=== PATIENT | female | born 1980 | race Caucasian/White ===

== ENCOUNTER 2017-05-26 | Inpatient (IN) | payer OTHER ==
[~2017-05-26] VITALS: Ht 160 cm; Wt 59.0 kg
[~2017-05-26] MED LIST: MULTIVITAMIN W-1 TAB PO; PRENATAL VITAMI1 TA3; PROZAC PO
--- NOTE | ~2017-05-26 | PN ---
Unit #: [id number] #: [id number] Patient: ARYAN ESCOBAR [id number] [facility] [address] [place] [address] [id number] I MR#: [id number] NAME: ARYAN ESCOBAR. ROOM: 84 Age: 37 Sex: F Admission Date: 05/26/2017 : 1980 Attending Physician: Gaurav Chase M.D. Admitting Physician: Gaurav Chase M.D. Primary Care Physician: Generic Doctor Not In System [facility] PROGRESS NOTES DATE 05/28/2017 DISCUSSION Ms. Evans is a 37-year-old female seen on 05/28/2017. Patient interviewed. Chart reviewed. Obtained information from nursing staff. Patient reported that she is feeling better. She has multiple raised lesions on her both arms and on legs she reported from anxiety, possible bug bites. Patient compliant, cooperative, sleeping good, tolerating medication fairly well. Complete review of system unremarkable. MENTAL STATUS EXAMINATION General appearance, patient dressed casually. Attention span, concentration fair. Oriented in place and person. Mood and affect labile. Speech monotone. Thought process concrete. Patient denied any thoughts of harming self or others. Recent and remote memory poor. Insight and judgement poor. DIAGNOSES 1. Mood disorder NOS. 2. Alcohol use disorder, severe. 3. Amphetamine use disorder, severe. ASSESSMENT/PLAN Advised to continue with current medication and therapeutic protocol. Also, ordered medical consultation to evaluate patient's skin lesion and evaluation and treatment. Will continue to follow. Dictated by... Malathi Crain/colby TD: 05/28/2017 22:44 JOB #: [id number] Unit #: [id number] #: [id number] Patient: ARYAN ESCOBAR [facility] PROGRESS NOTES Page 1 of 1 X Gaurav Chase MD X PROGRESS NOTE
--- NOTE | ~2017-05-26 | HP ---
Unit #: [id number] #: [id number] Patient: ARYAN ESCOBAR [id number] [place] [address] [id number] I MR#: [id number] NAME: ARYAN ESCOBAR. ROOM: P184 Age: 37 Sex: F Admission Date: 05/26/2017 : 1980 Attending Physician: Gaurav Chase M.D. Admitting Physician: Gaurav Chase M.D. Primary Care Physician: Generic Doctor Not In System HISTORY AND PHYSICAL HISTORY OF PRESENT ILLNESS Aryan is a 37 year old admitted to [facility] because of her abuse of alcohol. She is detoxing. PAST MEDICAL HISTORY 1. Long history of alcohol abuse. 2. History of illicit substance abuse to include crack cocaine. 3. Hepatitis C. PAST SURGICAL HISTORY Nothing reported. ALLERGIES No known drug allergies. SOCIAL HISTORY Smokes greater than 1 pack per day. Drinks a fifth of liquor on a daily basis. Admits to using crack cocaine on occasion. FAMILY HISTORY Medically noncontributory. REVIEW OF SYSTEMS CONSTITUTIONAL: No fever or chills. HEENT: Denies any sore throat, ear pain or runny nose. CARDIOVASCULAR: Denies chest pain, irregular heart rhythm or palpitations. CHEST: Denies shortness of breath or cough. No hemoptysis. GASTROINTESTINAL: Denies nausea, vomiting, diarrhea or chronic constipation. ENDOCRINE: Denies history of increased thirst or urination. No recent significant weight loss or gain. GENITOURINARY: Denies dysuria, frequency, or hematuria. SKIN: Denies any rashes. HEMATOLOGIC: Denies history of increased bleeding or bruising. MUSCULOSKELETAL: Denies any hot, swollen joints. No generalized muscle pain. NEUROLOGIC: Denies problems with vision or speech. No frequent, severe headaches. No numbness, tingling or weakness in any extremities. Denies loss of bladder or bowel control. CURRENT MEDICATIONS 1. Detox protocol. 2. Trazodone 75 mg q.h.s. Unit #: [id number] #: [id number] Patient: ARYAN ESCOBAR PHYSICAL EXAMINATION GENERAL: Alert, well-nourished, in no apparent distress. VITAL SIGNS: Blood pressure 112/84, heart rate 90, respirations 16, temperature 98.6. WEIGHT: 130. HEIGHT: 5 feet 3 inches. SKIN: Warm and dry. She has red, dry rash along both arms, right greater than left. There is evidence of excoriation. HEENT: Normocephalic. TMs not viewed. Oral and nasal passages clear. Conjunctivae clear. PERRLA. EOMs intact. NECK: Supple without lymphadenopathy or thyromegaly. HEART: Regular rate and rhythm without murmur. LUNGS: Clear. ABDOMEN: Soft, nontender. : Not done. EXTREMITIES: No evidence of cyanosis, clubbing or edema. Moves all without focal deficit. NEUROLOGICAL: Grossly within normal limits. Cranial Nerves: II: Visual cooper are intact. III, IV AND : Extraocular movements are intact. Pupils are equal, round and reactive to light. V: Facial sensation is grossly normal. VII: Facial movements and expression are normal. VIII: Auditory acuity grossly intact. IX, X: Uvula is midline. Phonation is normal. XI: Patient shrugs shoulders and turns head normally. XII: Tongue protrudes in the midline. Sensory and Motor Function: Sensory and motor sensation is grossly normal. Motor: moves all extremities well. Coordination: Gait is normal. Deep Tendon Reflexes: Intact. IMPRESSION 1. Psychiatric admission. 2. Alcohol abuse. 3. Hepatitis C. 4. Rash, most likely contact dermatitis. She tells me that she worked in the yard 4 or 5 days ago and itchy rash developed. RECOMMENDATIONS PSYCHIATRIC: Per psychiatrist. MEDICAL: 1. See no contraindication to participate in facility's activities. 2. Detox per protocol. MEDICAL PROGNOSIS Good. MEDICAL CONDITION Stable. Dictated by... Rena Bansal P.A.-C. for Malathi Ruvalcaba/colby Unit #: [id number] #: [id number] Patient: ARYAN ESCOBAR TD: 05/26/2017 19:50 JOB #: [id number] HISTORY AND PHYSICAL Page 1 of 1 X Rena Bansal HISTORY AND PHYSICAL
--- NOTE | ~2017-05-26 | PA ---
Unit #: [id number] #: [id number] Patient: ARYAN ESCOBAR [id number] [place] [address] [id number] I MR#: [id number] NAME: ARYAN ESCOBAR. ROOM: P184 Age: 37 Sex: F Admission Date: 05/26/2017 : 1980 Date of Assessment: Attending Physician: Gaurav Chase M.D. Admitting Physician: Gaurav Chase M.D. Primary Care Physician: Generic Doctor Not In System PSYCHIATRIC ASSESSMENT DATE OF SERVICE 05/25/2017. CHIEF COMPLAINT Alcohol abuse, amphetamine abuse, and depression. HISTORY OF PRESENT ILLNESS Ms. Evans is a 37-year-old female, seen on 05/25/2017. The patient presented with the above-mentioned complaint. The patient has a history of previous IOP treatment. The patient's children are under the care of her grandfather while the patient is in treatment. The patient reported feeling sad, depressed, anxious, but denied any suicidal or homicidal ideation. History of alcohol abuse and amphetamine abuse. The patient reported tobacco use, age of onset 16; alcohol, age of onset 16; marijuana, age of onset 16; crack cocaine, age of onset 27; amphetamine, age of onset 18. Longest period of sobriety 1 year, last period of sobriety in 2006. The patient reported history of blackout, hepatitis, withdrawal symptom, IV drug use. Reported symptoms such as diaphoresis, tremor, abdominal cramping, sleep problems, poor appetite. Needing admission to -IOP program. PAST PSYCHIATRIC HISTORY Remarkable for history of previous outpatient program. FAMILY HISTORY AND SOCIAL HISTORY The patient has a poor support system. No history of any abuse. The patient's family history is remarkable for history of substance abuse in the family. MEDICAL HISTORY Medical history is remarkable for history of hepatitis C. MEDICATION HISTORY None. ALLERGIES No known drug allergies. SUBSTANCE ABUSE HISTORY Please see above. REVIEW OF SYSTEMS HEENT: Eyes, clear. Ears, nose, mouth, and throat; clear. Unit #: [id number] #: [id number] Patient: ARYAN ESCOBAR CARDIOVASCULAR: Unremarkable. RESPIRATORY: Unremarkable. GI: Unremarkable. : Unremarkable. SKIN: Unremarkable. LYMPH NODE: Unremarkable. NEUROLOGIC: Unremarkable. ENDOCRINE: Unremarkable. HEMATOLOGIC: Unremarkable. ALLERGIC/IMMUNOLOGIC: Unremarkable. MUSCULOSKELETAL: Muscle strength and tone, no atrophy or abnormal movement. Gait normal. MENTAL STATUS EXAMINATION VITAL SIGNS: The patient's vital signs; temperature 98.6, pulse 66, respirations 19, blood pressure 103/68. Height 5 feet 3 inches, weight 130 pounds. GENERAL APPEARANCE: The patient dressed casually. The patient did not show any facial deformity. MUSCULOSKELETAL: Please see above. PSYCHIATRIC EXAMINATION Description of speech; regular rate, normal volume, normal articulation, coherent. Description of thought process, goal directed. Description of association, intact. Description of abnormal psychotic thinking; the patient denied any hallucination or delusions, but mood lability. Description of the patient's judgment, concerning everyday activity, poor. Social situation, poor. Concerning psychiatric condition, poor. Complete mental status examination; oriented in time, place, and person. Recent and remote memory, fair. Attention span and concentration, fair. Language, able to name object and repeat phrases. Fund of knowledge, aware of current event and passive vocabulary intact. Mood and affect, sad and dysphoric. Insight and judgment, fair to poor. ASSETS AND LIABILITIES Assets; the patient articulate, able to take care of her ADL. Liability; history of substance abuse. ADMITTING DIAGNOSES Psychiatric: Alcohol use disorder, severe, F10.20; amphetamine use disorder, severe, F15.20; major depressive disorder, recurrent, severe, F31.2. Secondary diagnosis: Deferred. Medical diagnosis: Hepatitis C. Stressors: Psychosocial stressors. PSYCHIATRIC PLAN AND TREATMENT GOAL AND DISCHARGE PLAN 1. Advised to admit the patient in [facility]-IOP program. Provide safe, supportive, and structured environment. Maintain sobriety. 2. Random urine drug screen. 3. The patient to continue with her medications; Seroquel 300 mg at bedtime, Vistaril 25 mg t.i.d. was given for anxiety, Neurontin 300 mg t.i.d. for severe anxiety and withdrawal symptoms from amphetamine. The patient was given crisis line #[phone]. Supportive psychotherapy and Unit #: [id number] #: [id number] Patient: ARYAN ESCOBAR psychoeducation provided to the patient. Educated about benefits and side effects of medication and course and prognosis of illness. Dictated by... Malathi Crain/yuridia TD: 05/29/2017 05:39 JOB #: [id number] PSYCHIATRIC ASSESSMENT Page 1 of 1 X Gaurav Chase MD PSYCHIATRIC ASSESSMENT
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
--- NOTE | ~2017-05-26 | CO ---
Unit #: [id number] #: [id number] Patient: ARYAN ESCOBAR [id number] [facility] [address] [place] [address] [id number] I MR#: [id number] NAME: ARYAN ESCOBAR. ROOM: 84 Age: 37 Sex: F Admission Date: 05/26/2017 : 1980 Attending Physician: Gaurav Chase M.D. Primary Care Physician: Generic Doctor Not In System Consultation Date: 05/28/2017 CONSULTATION REPORT ORDERING PROVIDER Dr. Chase. REASON FOR CONSULT Rash. SUBJECTIVE The patient reports that she was seen at [facility] several days ago and diagnosed with scabies, lice, and poison loida. She completed her scabies and lice treatment, but stopped putting the cream on her poison loida when she was admitted to [facility]. She reports that the poison loida is bothering her. It is very itchy. It is not completely dried out. The poison loida is located on her bilateral arms and her right leg. OBJECTIVE Linear, vesicular, erythematous papules noted on bilateral arms and right leg. They are not currently draining. ASSESSMENT Poison loida. PLAN Prescribe betamethasone cream to use b.i.d. until the rash is dry. Dictated by... Kiana Nichole/yuridia TD: 05/29/2017 05:38 JOB #: [id number] Unit #: [id number] #: [id number] Patient: ARYAN ESCOBAR CONSULTATION REPORT Page 1 of 1 X MADINA HO APRN CONSULTATION REPORT
--- NOTE | ~2017-05-26 | DS ---
Unit #: [id number] #: [id number] Patient: ARYAN ESCOBAR [id number] [facility] [address] [place] [address] [id number] I MR#: [id number] NAME: ARYAN ESCOBAR. ROOM: 84 Age: 37 Sex: F Admission Date: 05/26/2017 : 1980 Discharge Date: 05/29/2017 Attending Physician: Gaurav Chase M.D. Primary Care Physician: Generic Doctor Not In System DISCHARGE SUMMARY REASON FOR ADMISSION Substance abuse and depression. DIAGNOSTIC STUDIES LABORATORY DATA: Urine drugs screen positive for benzodiazepine, amphetamine, and marijuana. HOSPITAL COURSE The patient was admitted to inpatient unit on May 26 and discharged on 05/29/2017. The patient was treated with physical therapy, individual therapy, and medication management. The patient was responsive to treatment, showed improvement. Subsequently the patient was discharged with a plan to follow up in outpatient program. DISCHARGE MEDICATIONS None. DISCHARGE DIAGNOSES PSYCHIATRIC: Alcohol use disorder, severe, F10.20 Amphetamine use disorder, moderate, F15.20 Mood disorder not otherwise specified, F32.9 SECONDARY: Diagnosis deferred. MEDICAL: None. STRESSORS: Psychosocial stressor. FOLLOWUP CARE The patient to follow up in outpatient clinic as per social worker palliative care. CONDITION AT DISCHARGE The patient pleasant, cooperative. Denied any psychotic symptom or any suicidal ideation. PROGNOSIS Guarded. DIET AND ACTIVITY As tolerated. Dictated by... Gaurav Chase M.D. SZC/bzg Unit #: [id number] #: [id number] Patient: ARYAN ESCOBAR TD: 05/31/2017 12:24 JOB #: [id number] DISCHARGE SUMMARY Page 1 of 1 X Gaurav Chase MD X DISCHARGE SUMMARY
[2017-05-27 10:02] LABS: BASOPHIL# 0.1 X10e3 (0-0.3); BASOPHIL% 0.8 % (0-2.5); EOSINOPHIL# 0.3 X10e3 (0-0.7); EOSINOPHIL% 4.1 % (0.0-7.0); HEMATOCRIT 48.5 % (35.0-45.0); HEMOGLOBIN 16.6 gm/dL (12.0-16.0); LYMPHOCYTE# 2.7 X10e3 (1.0-3.5); LYMPHOCYTE% 39.8 % (17.0-45.0); MEAN CELL VOLUME 99.3 FL (83-96); MEAN CORPUSCULAR HEMOGLOBIN 33.9 PG (28-34); MEAN CORPUSCULAR HGB CONC 34.1 g/dL (30-36); MONOCYTE# 0.5 X10e3 (0-1.0); MONOCYTE% 7.9 % (3.0-12.0); NEUTROPHIL# 3.2 X10e3 (1.5-7.1); NEUTROPHIL% 47.4 % (40-75); PLATELET COUNT 225 X10e3 (140-420); RED BLOOD COUNT 4.89 X10e (3.90-5.30); RED CELL DISTRIBUTION WIDTH 14.5 % (11.0-15.5); WHITE BLOOD COUNT 6.7 X10e3 (4.0-10.5)
[2017-05-27 10:04] LABS: DIFF IND NO
[2017-05-27 10:07] LABS: BILIRUBIN,TOTAL 0.7 mg/dL (0.2-2.0); BUN/CREATININE RATIO 31.66; CALCIUM SERUM 9.6 mg/dL (8.4-10.2); CREATININE SERUM 0.6 mg/dL (0.6-1.4); GLOM FILT RATE Estimated 118.1 mL/min (>60); POTASSIUM 4.2 mmol/L (3.5-5.1); PROTEIN TOTAL SERUM 6.8 g/dL (6.0-8.3)
[2017-05-28 12:37] LABS: URINE APPEARANCE CLOUDY; URINE BILIRUBIN NEG (NEG); URINE BLOOD NEG (NEG); URINE COLOR DK YELLOW; URINE GLUCOSE NEG (NEG); URINE KETONE NEG (NEG); URINE LEUKOCYTE ESTERASE TRACE (NEG); URINE NITRATE POS (NEG); URINE PH 5.5 (5-8); URINE PROTEIN NEG (NEG); URINE SPECIFIC GRAVITY 1.024 (1.003-1.035); URINE UROBILINOGEN 0.2 MG/DL (NEG)
[2017-05-28 12:40] LABS: URINE BACTERIA AUWI 3+ (NEGATIVE); URINE SQUAMOUS EPITHELIAL CELL MOD /[HPF]
[2017-05-28 13:14] LABS: AMPHETAMINE POS (NEG); BARBITURATES NEG (NEG); BENZODIAZEPINES POS (NEG); COCAINE NEG (NEG); MARIJUANA POS (NEG); OPIATES NEG (NEG); TRICYCLIC ANTIDEPRESSANTS NEG (NEG); U METHADONE NEG (NEG)
[2017-05-28 13:21] LABS: URINE CRYSTALS CALCIUM OXALATE /[HPF]
== END 2017-05-29 13:30 | disposition home or self-care (01) | DRG 897 ==
LOC: P1E 08:55
PROVIDERS: Psychiatry & Neurology Psychiatry
PROC: HZ2ZZZZ Detoxification Services for Substance Abuse Treatment (ICD-10-PCS; principal; 2017-05-26)
DX: F10.20 Alcohol dependence, uncomplicated (principal); F33.2 Major depressive disorder, recurrent severe without psychotic features; F15.20 Other stimulant dependence, uncomplicated; F17.210 Nicotine dependence, cigarettes, uncomplicated
CPT/HCPCS: 80053; 80307; 81003; 84703; 85025; 86592